=== PATIENT | female | born 1990 | race African-American/Black ===

== ENCOUNTER 2017-10-06 11:05 | Emergency (ER) | payer MEDICAID ==
[~2017-10-06] VITALS: Ht 157.5 cm; Wt 61.8 kg
[2017-10-06 11:13] VITALS: BP 127/89
== END 2017-10-06 12:37 | disposition home or self-care (01) ==
LOC: ED 11:05
DX: Z53.21 Procedure and treatment not carried out due to patient leaving prior to being seen by health care provider (principal)

== ENCOUNTER 2018-02-14 09:08 | Emergency (ER) | payer OTHER ==
[~2018-02-14] VITALS: Ht 160 cm; Wt 57.4 kg
[2018-02-14 09:21] VITALS: BP 114/74
== END 2018-02-14 11:33 | disposition home or self-care (01) ==
LOC: ED 09:08
DX: H66.91 Otitis media, unspecified, right ear (principal); J06.9 Acute upper respiratory infection, unspecified; J45.909 Unspecified asthma, uncomplicated; Z90.89 Acquired absence of other organs
CPT/HCPCS: J7512; J7620

== ENCOUNTER 2018-07-07 19:51 | Emergency (ER) | payer SELFPAY ==
[~2018-07-07] VITALS: Ht 157.5 cm; Wt 55.5 kg
[2018-07-07 20:09] VITALS: Ht 157.5 cm; Wt 55.5 kg
[2018-07-07 22:00] VITALS: BP 117/77
== END 2018-07-07 22:00 | disposition home or self-care (01) ==
LOC: ED 19:51
DX: S70.362A Insect bite (nonvenomous), left thigh, initial encounter (principal); S80.861A Insect bite (nonvenomous), right lower leg, initial encounter; L25.9 Unspecified contact dermatitis, unspecified cause; W57.XXXA Bitten or stung by nonvenomous insect and other nonvenomous arthropods, initial encounter; Y92.9 Unspecified place or not applicable
CPT/HCPCS: Q0163

== ENCOUNTER 2019-02-04 00:49 | Emergency (ER) | payer OTHER ==
[~2019-02-04] VITALS: Ht 157.5 cm; Wt 57.3 kg
[2019-02-04 00:56] VITALS: Ht 157.5 cm; Wt 57.3 kg
[2019-02-04 05:05] VITALS: BP 124/78
== END 2019-02-04 05:05 | disposition home or self-care (01) ==
LOC: ED 00:49
DX: J06.9 Acute upper respiratory infection, unspecified (principal); J45.909 Unspecified asthma, uncomplicated; Z90.89 Acquired absence of other organs; Z98.890 Other specified postprocedural states

== ENCOUNTER 2019-04-07 18:45 | Emergency (ER) | payer OTHER ==
[~2019-04-07] VITALS: Ht 160 cm; Wt 60.3 kg
[2019-04-07 18:53] VITALS: Ht 160 cm; Wt 60.3 kg
[2019-04-07 21:05] VITALS: BP 112/65
== END 2019-04-07 20:57 | disposition home or self-care (01) ==
LOC: ED 18:45
DX: J11.1 Influenza due to unidentified influenza virus with other respiratory manifestations (principal); R05 Cough; J45.909 Unspecified asthma, uncomplicated; Z90.89 Acquired absence of other organs; Z98.890 Other specified postprocedural states; Z79.899 Other long term (current) drug therapy
CPT/HCPCS: J1885; J7030

== ENCOUNTER 2020-10-17 11:09 | Emergency (ER) | payer OTHER | END 2020-10-17 12:30 | disposition left against medical advice (07) | LOC: ED 11:09 | DX: Z53.21 Procedure and treatment not carried out due to patient leaving prior to being seen by health care provider (principal) ==

== ENCOUNTER 2021-01-04 10:32 | Emergency (ER) | payer OTHER ==
[~2021-01-04] VITALS: Ht 162.6 cm; Wt 52.2 kg
[2021-01-04 10:38] VITALS: BP 141/91; Ht 162.6 cm; Wt 52.2 kg
== END 2021-01-04 11:23 | disposition home or self-care (01) ==
LOC: ED 10:32
DX: M54.6 Pain in thoracic spine (principal); R10.11 Right upper quadrant pain; R10.13 Epigastric pain; J45.909 Unspecified asthma, uncomplicated; Z90.89 Acquired absence of other organs; Z98.890 Other specified postprocedural states